=== PATIENT | male | born 2000 | race Caucasian/White ===

== ENCOUNTER 2021-11-07 19:07 | Emergency (ER) | payer MEDICAID ==
[~2021-11-07] VITALS: Ht 175.3 cm; Wt 77.3 kg
[2021-11-07 21:16] VITALS: BP 130/83
[2021-11-07] MEDS ORDERED: ondansetron 4mg rapidly disintigrating tab PO ONE (22:10)
[2021-11-07 22:30] LABS: BASOPHILS % (AUTO) 0.6 % (0-1); EOSINOPHILS % (AUTO) 0.2 % (0-6); HEMATOCRIT 47.3 % (42.0-52.0); HEMOGLOBIN 16.4 g/dl (14.0-17.9); LYMPHOCYTES # (AUTO) 1.2 X10'3 (1.1-4.8); MEAN CORPUSCULAR HEMOGLOBIN 29.1 PG (27.0-31.0); MEAN CORPUSCULAR HGB CONC 34.6 g/dL (33.0-36.5); MEAN CORPUSCULAR VOLUME 84.2 FL (78-98); MEAN PLATELET VOLUME 7.4 FL (7.4-10.4); MONOCYTES # (AUTO) 0.5 X10'3 (0-0.9); MONOCYTES % (AUTO) 5.8 % (2-12); NEUTROPHILS # (AUTO) 6.5 X10'3 (1.8-7.7); NEUTROPHILS % (AUTO) 79.4 % (42-75); PLATELET COUNT 265 X10'3 (140-440); RED BLOOD COUNT 5.61 X10'6 (4.70-6.10); RED CELL DISTRIBUTION WIDTH 12.8 % (11.5-14.5); WHITE BLOOD COUNT 8.2 X10'3 (4.5-11.0)
[2021-11-07] MEDS ORDERED: ONDA4TAB12 PO (23:10)
[2021-11-07 23:17] LABS: ALANINE AMINOTRANSFERASE 24 U/L (12-78); ALBUMIN 4.5 G/DL (3.4-5.0); ALBUMIN/GLOBULIN RATIO 1.3 (1.1-1.5); ALKALINE PHOSPHATASE 86 IU/L (46-116); ANION GAP 8 (8-16); ASPARTATE AMINO TRANSFERASE 22 U/L (10-37); BILIRUBIN,TOTAL 0.4 MG/DL (0.1-1.0); BLOOD UREA NITROGEN 15 MG/DL (7-18); BUN/CREATININE RATIO 17.6 (5.4-32.0); CALCIUM 9.4 MG/DL (8.5-10.1); CHLORIDE 99 MMOL/L (99-107); CREATININE 0.85 MG/DL (0.60-1.10); GLUCOSE 105 MG/DL (70-104); LIPASE 59 U/L (73-393); POTASSIUM 4.1 MMOL/L (3.5-5.1); SODIUM 136 MMOL/L (135-145); TOTAL CARBON DIOXIDE 29.5 MMOL/L (24-32); eGFR > 90 ML/MIN
== END 2021-11-07 23:28 | disposition home or self-care (01) ==
LOC: ER 19:08
DX: R11.2 Nausea with vomiting, unspecified (principal); R10.84 Generalized abdominal pain; Z79.899 Other long term (current) drug therapy
CPT/HCPCS: 36415; 80053; 83690; 85025; 99283

== ENCOUNTER 2021-11-25 14:55 | Inpatient (IN) | payer MEDICAID ==
[~2021-11-25] VITALS: Ht 175.3 cm; Wt 79.5 kg
[~2021-11-25 14:55] MED LIST: ONDA4TAB12 PO
[2021-11-25 19:10] LABS: BASOPHILS % (AUTO) 0.5 % (0-1); EOSINOPHILS # (AUTO) 0.3 X10'3 (0-0.9); EOSINOPHILS % (AUTO) 6.1 % (0-6); HEMATOCRIT 44.1 % (42.0-52.0); HEMOGLOBIN 14.7 g/dl (14.0-17.9); LYMPHOCYTES # (AUTO) 2.3 X10'3 (1.1-4.8); LYMPHOCYTES % (AUTO) 41.6 % (21-51); MEAN CORPUSCULAR HEMOGLOBIN 28.1 PG (27.0-31.0); MEAN CORPUSCULAR HGB CONC 33.3 g/dL (33.0-36.5); MEAN CORPUSCULAR VOLUME 84.4 FL (78-98); MEAN PLATELET VOLUME 7.5 FL (7.4-10.4); MONOCYTES # (AUTO) 0.7 X10'3 (0-0.9); MONOCYTES % (AUTO) 11.7 % (2-12); NEUTROPHILS # (AUTO) 2.3 X10'3 (1.8-7.7); NEUTROPHILS % (AUTO) 40.1 % (42-75); PLATELET COUNT 252 X10'3 (140-440); RED BLOOD COUNT 5.23 X10'6 (4.70-6.10); RED CELL DISTRIBUTION WIDTH 12.7 % (11.5-14.5); WHITE BLOOD COUNT 5.6 X10'3 (4.5-11.0)
--- NOTE | 2021-11-25 19:17 | NUR ---
ASSIGNED SITTER FOR PT. PT LYING ON HIS SIDE WATCHING STAFF WALK THE HALLS.
[2021-11-25 19:20] LABS: ALANINE AMINOTRANSFERASE 17 U/L (12-78); ALBUMIN 3.6 G/DL (3.4-5.0); ALBUMIN/GLOBULIN RATIO 1.2 (1.1-1.5); ALKALINE PHOSPHATASE 92 IU/L (46-116); ANION GAP 3 (8-16); ASPARTATE AMINO TRANSFERASE 15 U/L (10-37); BILIRUBIN,TOTAL 0.2 MG/DL (0.1-1.0); BLOOD UREA NITROGEN 17 MG/DL (7-18); BUN/CREATININE RATIO 23.6 (5.4-32.0); CALCIUM 8.3 MG/DL (8.5-10.1); CHLORIDE 106 MMOL/L (99-107); CREATININE 0.72 MG/DL (0.60-1.10); GLUCOSE 122 MG/DL (70-104); POTASSIUM 3.9 MMOL/L (3.5-5.1); SODIUM 139 MMOL/L (135-145); TOTAL CARBON DIOXIDE 29.9 MMOL/L (24-32); TOTAL PROTEIN 6.7 G/DL (6.4-8.2); eGFR > 90 ML/MIN
[2021-11-25 19:29] LABS: ETHANOL < 0.010 GM/DL (0.0-0.010)
--- NOTE | 2021-11-25 19:56 | NUR ---
Recvd patient from main ED. Patient to the restroom to give urine sample. No needs at this time. No signs of distress.
[2021-11-25 20:31] LABS: URINE AMPHETAMINE SCREEN NEGATIVE (Neg); URINE BARBITUATE SCREEN NEGATIVE (Neg); URINE BENZODIAZEPINES SCREEN NEGATIVE (Neg); URINE CANNABINOID SCREEN NEGATIVE (Neg); URINE COCAINE SCREEN NEGATIVE (Neg); URINE METHADONE SCREEN NEGATIVE (Neg); URINE OPIATE SCREEN NEGATIVE (Neg); URINE PHENCYCLIDINE SCREEN NEGATIVE (Neg)
[2021-11-25] MEDS ORDERED: NO HOME MEDS (20:40)
--- NOTE | 2021-11-25 21:00 | NUR ---
Patient settled in and asleep in bed. No signs of distress. No needs at this time.
[2021-11-25 22:30] LABS: PLATELET ESTIMATE NORMAL; TOTAL CELLS COUNTED 100
[2021-11-25 22:31] LABS: SMUDGE CELLS 1+
--- NOTE | 2021-11-25 23:00 | NUR ---
Patient asleep. No needs at this time. No signs of distress.
--- NOTE | 2021-11-26 01:00 | NUR ---
Patient asleep in bed. No signs of distress. No needs at this time.
--- NOTE | 2021-11-26 03:00 | NUR ---
Patient asleep in bed. No signs of distress. No needs at this time.
--- NOTE | 2021-11-26 04:15 | NUR ---
Patient asleep in bed. No signs of distress. No needs at this time.
--- NOTE | 2021-11-26 06:39 | NUR ---
Assumed care of patient, currently sleeping, no needs at this time.
--- NOTE | 2021-11-26 12:34 | NUR ---
Received call, patient accepted to [facility] at 1223pm by Dr. Linares.
--- NOTE | 2021-11-26 14:47 | NUR ---
Admit note: PT admitted to [facility] on a 5150 for gravely disabled at 1420. Pt is experiencing auditory and visual hallucinations, body controlled by others, voices tell him to kill himself, unable to safety plan .Pt has history of schizophrenia.
--- NOTE | 2021-11-26 17:00 | NUR ---
Pt admitted took a shower, ate snack then went to sleep.
[2021-11-26] MEDS ORDERED: diphenhydrAMINE 25mg capsule PO PRN (18:25)
[2021-11-26] MEDS ORDERED: LORazepam 1 MG tablet PO PRN (18:25)
[2021-11-26 19:24] VITALS: BP 110/60
--- NOTE | 2021-11-26 21:10 | NUR ---
Nursing Progress Note: Legal hold: 5150 Client on involuntary status for DTS Report received from SOPHIA Ross with use of SBAR. Why are they here: PT admitted to [facility] on a 5150 for gravely disabled at 1420. Pt is experiencing auditory and visual hallucinations, body controlled by others, voices tell him to kill himself, unable to safety plan .Pt has history of schizophrenia. Assessment What has happened this shift: Pt was sleeping in his room at change of shift, Pt was awaken for snack and had HS snack. Pt states he is here because he can't control his own body and other people are controlling it. Pt appears to be anxious, offered pt prns and pt declines prns. Pt went to sleep after having hs snack. S/I, H/I: denies A/VH: +AH Sleep: see sleep hours ADL's: Independent Group attendance: no evening groups Were meds taken: only prns ordered Any med S/E: None observed or reported. Mental Status Exam Appearance: Young man, clean, wearing casual personal attire. Eye contact: Fair Behavior: isolates to self sleeping Speech: Clear normal rate/ volume Mood: anxious Affect: Blunted Thought process: Linear Thought Content: Occupied by internal stimuli. Cognition: A&O x4 Insight: Fair Judgment: Fair Interventions PRN's used: none Therapeutic interventions: Provided 1:1 assessment with therapeutic communication and active listening, medication administration/education/monitoring, provided direction and encouragement regarding performance of ADLs, monitored behaviors and maintained clear boundaries, provided positive reinforcement, and maintained Q 15min safety checks. Restraints/seclusion/emergency medication: N/A Justification of Continued Inpatient Treatment: Pt. requires interruption of current crisis, medication adjustments, and a safe and supportive environment.
[2021-11-27] MEDS ORDERED: mag hydrox/Alum hydrox/simeth 30ml oral suspension PO PRN (06:20)
[2021-11-27] MEDS ORDERED: acetaminophen 325mg tablet PO PRN ×2 (06:20)
[2021-11-27] MEDS ORDERED: loperamide 2mg capsule PO PRN (06:20)
[2021-11-27] MEDS ORDERED: magnesium hydroxide 30ml (MOM) UD suspension PO PRN (06:20)
--- NOTE | 2021-11-27 07:27 | NUR ---
Malnutrition consult: Pt admitted w/ hallucinations per EMR. Pt unsure of wt loss per MST though current wt is consistent w/ wt from 1 month ago in EMR. Currently on Regular diet w/ 100% intake of 3 meals. Appears WD/WN per ED note. No edema noted. At this time pt does not meet minimum criteria for malnutrition. Addendum: 11/27/21 at [address] Amended: Links added.
[2021-11-27 07:54] VITALS: BP 101/54
--- NOTE | 2021-11-27 15:17 | NUR ---
Nursing Progress Note: Legal hold: 5150 Client on involuntary status for DTS Report received from SOPHIA Beard with use of SBAR. Why are they here: Pt is experiencing auditory and visual hallucinations, body controlled by others, voices tell him to kill himself, unable to safety plan .Pt has history of schizophrenia. Assessment What has happened this shift: Pt is observed sleeping most of the shift. He asked for and was given PRN Benadryl and Ativan. He continued to sleep. Pt is up for meals and snacks. Pt does not have a plan for discharge. He states, "I can't control myself." [facility] called and shared this pt has been tagged as DTO's in that [facility]. He will start Abilify tablets tonight. His last injection of Abilify Maintena was given on 10/13/21. Dosage is not known. The information was gathered from [facility] [employer]. S/I, H/I: denies A/VH: +AH Sleep: Slept until 1530 ADL's: Independent Group attendance: N/A Were meds taken: PRN's Any med S/E: None observed or reported. Mental Status Exam Appearance: Young man, clean, wearing green scrubs Eye contact: Fair Behavior: Isolates to room; sleeping Speech: Clear normal rate/ volume Mood: Anxious Affect: Blunted Thought process: Linear Thought Content: Occupied by internal stimuli. Cognition: A&O x4 Insight: Fair Judgment: Fair Interventions PRN's used: Ativan, Benadryl Therapeutic interventions: Provided 1:1 assessment with therapeutic communication and active listening, medication administration/education/monitoring, provided direction and encouragement regarding performance of ADLs, monitored behaviors and maintained clear boundaries, provided positive reinforcement, and maintained Q 15min safety checks. Restraints/seclusion/emergency medication: N/A Justification of Continued Inpatient Treatment: Pt. requires interruption of current crisis, medication adjustments, and a safe and supportive environment.
[2021-11-27 19:00] VITALS: BP 107/59
[2021-11-27] MEDS: ARIPIPRAZOLE 15 MG TABLET PO SCH (21:00)
[2021-11-27] MEDS: traZODone 50mg tablet PO SCH (21:00)
--- NOTE | 2021-11-28 03:28 | NUR ---
RN PROGRESS NOTE: LEGAL HOLD: 5150 for GD THIS SHIFT: Client watched TV at COS. Client has a flat affect and depressed mood. He was med compliant and denied any side effect to medications. Client fell asleep w/o difficulty.
[2021-11-28 07:22] LABS: HEMOGLOBIN A1C 5.3 % (4.5-6.2)
[2021-11-28 07:50] LABS: CHOL/HDL RATIO 3.5 (0.00-4.99); CHOLESTEROL 166 MG/DL (0-200); HDL CHOLESTEROL 47 MG/DL (35-60); LDL CHOLESTEROL 92 MG/DL (50-100); TRIGLYCERIDES 74 MG/DL (20-135)
[2021-11-28 07:58] VITALS: BP 103/57
--- NOTE | 2021-11-28 16:39 | NUR ---
Nursing Progress Note: Marty Legal hold: 5150 Client on involuntary status for DTS Report received from Rani Pan RN with use of SBAR. Why are they here: Pt is experiencing auditory and visual hallucinations, body controlled by others, voices tell him to kill himself, unable to safety plan .Pt has history of schizophrenia. Assessment What has happened this shift: Pt. received sleeping, and woke for assessment. Pt. denies SI, HI, and reports I see figures, that you cant see Pt. reports he was admitted d/t I couldnt control my body he also reports his discharge plans are Ill cruise around, maybe to some old spots Pt. has no routine medication and denies having anxiety or needing a PRN. Pt. presents as cooperative but guarded. Pt. ate his meals in the dining room with cohorts but mainly keeps to himself, he quickly eats and returns to his room immediately. Pt. spent most of shift isolating in his room and intermittently napping. Staff reported pt. often heard responding to IS and having bursts of laughter both in his room and in the smith. Pt. did initiate a shower and returned to his room quickly after. S/I, H/I: Denies A/VH: Endorses VH, denies AH Sleep: 6.5hrs per NOC shift and 2 one hr. naps. ADL's: Independent Group attendance: N/A Were meds taken: None Any med S/E: None observed or reported. Mental Status Exam Appearance: Young man, clean, wearing green scrubs Eye contact: Fair Behavior: Isolates to room Speech: Clear Mood: Anxious at times Affect: Blunted Thought process: Linear Thought Content: Occupied by internal stimuli. Cognition: A&O x4 Insight: Fair Judgment: Fair Interventions PRN's used:None Therapeutic interventions: Provided 1:1 assessment with therapeutic communication and active listening, medication administration/education/monitoring, provided direction and encouragement regarding performance of ADLs, monitored behaviors and maintained clear boundaries, provided positive reinforcement, and maintained Q 15min safety checks. Restraints/seclusion/emergency medication: N/A Justification of Continued Inpatient Treatment: Pt. requires interruption of current crisis, medication adjustments, and a safe and supportive environment.
[2021-11-28] MEDS ORDERED: aripiprazole 400mg suspension ER syringe IM ONE (18:25)
[2021-11-28 20:00] VITALS: BP 101/57
[2021-11-28] MEDS: traZODone 50mg tablet PO SCH (20:06)
[2021-11-28] MEDS: ARIPIPRAZOLE 15 MG TABLET PO SCH (20:06)
--- NOTE | 2021-11-29 02:24 | NUR ---
Nursing Progress Note: Marty Legal hold: 5150 Client on involuntary status for DTS Report received from ALTHEA rose with use of SBAR. Why are they here: Pt is experiencing auditory and visual hallucinations, body controlled by others, voices tell him to kill himself, unable to safety plan .Pt has history of schizophrenia. Assessment What has happened this shift: Pt. received sleeping lying in bed resting. Pt cooperative with care and states he sees images and figures and that he hears voices with random conversation. Pt. tolerated Abilify IM in left deltoid, participated in snacks and took all HS medications without issue. Pt returned to his room shortly after snacks and went to sleep. S/I, H/I: Denies A/VH: Endorses VH, endorses AH Sleep: ADL's: Independent Group attendance: N/A Were meds taken: None Any med S/E: None observed or reported. Mental Status Exam Appearance: Young man, clean, wearing green scrubs Eye contact: Fair Behavior: Isolates to room Speech: Clear Mood: Anxious at times Affect: Blunted Thought process: Linear Thought Content: Occupied by internal stimuli. Cognition: A&O x4 Insight: Fair Judgment: Fair Interventions PRN's used:None Therapeutic interventions: Provided 1:1 assessment with therapeutic communication and active listening, medication administration/education/monitoring, provided direction and encouragement regarding performance of ADLs, monitored behaviors and maintained clear boundaries, provided positive reinforcement, and maintained Q 15min safety checks. Restraints/seclusion/emergency medication: N/A Justification of Continued Inpatient Treatment: Pt. requires interruption of current crisis, medication adjustments, and a safe and supportive environment.
[2021-11-29 08:00] VITALS: BP 106/59
[2021-11-29] MEDS ORDERED: TRAZ-256 PO (14:39)
[2021-11-29] MEDS ORDERED: ARIP30TA22 PO (14:39)
--- NOTE | 2021-11-29 15:32 | NUR ---
Discharge Note: Pt. received all personal items he brought with at time of admission, all paperwork signed, copied, and reviewed. Pt. was advised to schedule f/u with [facility] health services. Pt. was escorted of the unit and he ambulated to entrance without issue at 1505.
== END 2021-11-29 15:25 | disposition home or self-care (01) | DRG 750 ==
LOC: ER 14:56 → ED HOLD 11-26 12:30 → ADULT MH 11-26 14:34
PROVIDERS: ADMIT Psychiatry & Neurology Psychiatry; ATTEND Psychiatry & Neurology Psychiatry
DX: F25.0 Schizoaffective disorder, bipolar type (principal); E11.9 Type 2 diabetes mellitus without complications; Z20.822 Contact with and (suspected) exposure to COVID-19; F12.10 Cannabis abuse, uncomplicated; F15.10 Other stimulant abuse, uncomplicated; F17.210 Nicotine dependence, cigarettes, uncomplicated; I10 Essential (primary) hypertension
CPT/HCPCS: 36415; 80053; 80061; 80305; 80320; 83036; 84443; 85007; 85025; 87081; 87635; 99285; C9803; Q0163